=== PATIENT | female | born 1975 | race American Indian/Alaskan Native ===

== ENCOUNTER 2021-11-25 09:06 | Day surgery (SDC) | payer BC ==
[2021-11-20 15:15] VITALS: BMI 36.3
[2021-11-25] MEDS ORDERED: Lidocaine 1% MPF 2 ML VIAL ONE (09:18)
[2021-11-25] MEDS ORDERED: Bupivacaine PF 0.5% 30 ML VIAL ONE ×2 (10:19→13:35)
[2021-11-25] MEDS ORDERED: Neomycin-Polymyxin 1 ML AMP ONE (10:20)
[2021-11-25] MEDS ORDERED: CEFAZOLIN 1 GM VIAL ONE (10:20)
[2021-11-25] MEDS ORDERED: Ondansetron PF 4 MG/2 ML Vial ONE (11:12)
[2021-11-25] MEDS ORDERED: Lidocaine 1% PF 5 ML VIAL ONE (11:12)
[2021-11-25] MEDS ORDERED: PROPOFOL 20 ML ONE (11:12)
[2021-11-25] MEDS ORDERED: Dexamethasone 4 mg/ml Vial ONE (11:12)
[2021-11-25] MEDS ORDERED: Fentanyl 100 MCG/2 ML VIAL ONE ×2 (11:12→11:34)
[2021-11-25] MEDS ORDERED: Ketorolac Tromethamine 30 MG/ML VIAL ONE (11:12)
[2021-11-25] MEDS ORDERED: Ondansetron PF 4 MG/2 ML Vial IVP PRN (11:30)
[2021-11-25] MEDS ORDERED: Zolpidem Tartrate 5 MG TAB PO PRN (11:30)
[2021-11-25] MEDS ORDERED: Promethazine HCl 25 MG/ML VIAL IM PRN (11:30)
[2021-11-25] MEDS ORDERED: Ropivacaine 0.2% 550 ML 550 ML NERVE BLCK SCH (11:30)
[2021-11-25] MEDS ORDERED: ePHEDrine Sulfate 50 MG/10 ML VIAL ONE (12:53)
== END 2021-11-25 15:10 | disposition home or self-care (01) ==
LOC: CSHSDC 09:06
PROVIDERS: ATTEND Podiatrist Foot & Ankle Surgery
DX: M20.12 Hallux valgus (acquired), left foot (principal); M25.375 Other instability, left foot; M77.42 Metatarsalgia, left foot; M20.42 Other hammer toe(s) (acquired), left foot; Z79.899 Other long term (current) drug therapy; E03.9 Hypothyroidism, unspecified
CPT/HCPCS: A4306; C1713; C1769; C1776; J0690; J1100; J1885; J2405; J2704; J2795; J3010; S0020